=== PATIENT | female | born 1965 | race Caucasian/White ===

== ENCOUNTER 2021-10-04 14:17 | Outpatient (CLI) | payer MEDICARE, MEDICAID | END 2021-10-04 14:18 | disposition home or self-care (01) | LOC: BICCT 14:17 | PROVIDERS: ATTEND Internal Medicine Hematology & Oncology | DX: Z12.2 Encounter for screening for malignant neoplasm of respiratory organs (principal); F17.210 Nicotine dependence, cigarettes, uncomplicated; I25.10 Atherosclerotic heart disease of native coronary artery without angina pectoris; I70.0 Atherosclerosis of aorta | CPT/HCPCS: 71271 ==